=== PATIENT | male | born 1990 | race Caucasian/White ===

== ENCOUNTER 2019-08-23 17:30 | Outpatient (REF) | payer MEDICAID, SELFPAY ==
[2019-08-23 19:34] LABS: ALT 36 U/L (16-63); AST 18 U/L (15-37); Anion Gap 13.3 mmol/L (3-11); BUN 10 mg/dL (7-18); CO2 26.7 mmol/L (21.0-32.0); CREATININE 0.92 mg/dL (0.70-1.30); Calcium 9.4 mg/dL (8.5-10.1); Calculated LDL 156 mg/dL; Chloride 99 mmol/L (98-107); Cholesterol 231 mg/dL (<200); Glucose 85 mg/dL (74-106); HDL Cholesterol 47 mg/dL (40-60); Potassium 3.6 mmol/L (3.5-5.1); Sodium 139 mmol/L (136-145); Triglyceride 140 mg/dL (<150)
[2019-08-23 20:18] LABS: Hemoglobin A1C 5.9 % (4.5-6.2)
== END 2019-08-23 17:50 ==
LOC: NCHCO 17:30
PROVIDERS: PCP Nurse Practitioner Family; Visit Provider Nurse Practitioner Family
DX: I10 Essential (primary) hypertension (principal); R73.09 Other abnormal glucose; E78.5 Hyperlipidemia, unspecified
CPT/HCPCS: 80048; 80061; 83036; 84450; 84460

== ENCOUNTER 2020-03-08 09:52 | Outpatient (REF) | payer MEDICAID, SELFPAY ==
[2020-03-08 20:19] LABS: Abs Immature Grans 0.01 k/cumm (0.0-0.09); Absolute Basophil Count 0.03 k/cumm (0.0-0.2); Absolute Eosinophil Count 0.21 k/cumm (0.0-0.7); Absolute Lymphocyte Count 2.39 k/cumm (1.2-3.4); Absolute Monocyte Count 0.45 k/cumm (0.11-0.7); Absolute Neutrophil Count 5.01 k/cumm (1.2-6.7); Basophils % 0.4; Eosinophils % 2.6; HCT 41.1 % (40.0-50.0); HGB 13.9 g/dL (13.5-17.5); Immature Grans % 0.1 %; Lymphocytes % 29.5; Mean Corp. HGB Concentration 33.8 g/dL (32.0-36.0); Mean Corpuscular Hemoglobin 29.1 pg (27.0-33.0); Mean Platelet Volume 10.6 fL (8.0-11.0); Monocytes % 5.6; Neutrophils % 61.8; Platelet Count 286 x1000/uL (130-400); RBC 4.78 m/cumm (4.50-6.00); RBC Distribution Width 13.6 % (11.8-14.1)
[2020-03-08 20:32] LABS: Iron 59 ug/dL (65-175); Total Iron Binding Capacity 303 ug/dL (250-450); Transferrin Sat 19 % (20-55)
[2020-03-08 20:49] LABS: ALT 30 U/L (16-63); AST 18 U/L (15-37); Albumin 4.1 g/dL (3.4-5.0); Alkaline Phosphatase 75 U/L (46-116); Anion Gap 10.7 mmol/L (3-11); BUN 16 mg/dL (7-18); Bilirubin, Total 0.3 mg/dL (0.2-1.0); C-Reactive Protein 0.46 mg/dL (0.0-0.3); CO2 28.3 mmol/L (21.0-32.0); CREATININE 1.03 mg/dL (0.70-1.30); Calcium 9.2 mg/dL (8.5-10.1); Chloride 102 mmol/L (98-107); Glucose 74 mg/dL (74-106); Magnesium 1.9 mg/dL (1.8-2.4); Sodium 141 mmol/L (136-145); TSH (W/Ref FT4) 0.93 uIU/mL (0.36-3.74); Total Protein 7.5 g/dL (6.4-8.2); Uric Acid 6.4 mg/dL (3.5-7.2)
[2020-03-08 20:53] LABS: Vitamin D 25 Total 10.9 ng/ml (30-100)
[2020-03-08 20:56] LABS: ESR 16 mm/hr (0-15)
[2020-03-08 21:27] LABS: Ferritin 140 ng/mL (26-388); Vitamin B12 366 pg/mL (193-986)
[2020-03-09 17:06] LABS: Rheumatoid Factor <8.6 IU/mL (<12.0)
[2020-03-12 12:44] LABS: Lyme Ab w Rflx to Lyme Confirm Negative (Negative)
[2020-03-13 01:59] LABS: Anaplasma phagocytophilum Negative (Negative); B. miyamotoi PCR Negative (Negative); Babesia divergens/MO-1 Negative (Negative); Babesia duncani Negative (Negative); Babesia microti Negative (Negative); Ehrlichia chaffeensis Negative (Negative); Ehrlichia ewingii/canis Negative (Negative); Ehrlichia muris eauclairensis Negative (Negative)
== END 2020-03-08 10:12 ==
LOC: NCHCN 09:52
PROVIDERS: PCP Nurse Practitioner Family; Visit Provider Physician Assistant
DX: M51.36 Other intervertebral disc degeneration, lumbar region (principal); R53.1 Weakness; M25.50 Pain in unspecified joint; E66.01 Morbid (severe) obesity due to excess calories; I10 Essential (primary) hypertension; E78.5 Hyperlipidemia, unspecified
CPT/HCPCS: 80053; 82306; 85652; 87798; 82607; 82728; 83540; 83550; 83735; 84443; 84550; 85025; 86140; 86431; 86618

== ENCOUNTER 2021-02-07 20:40 | Outpatient (REF) | payer MEDICAID, SELFPAY ==
[2021-02-07 18:44] LABS: HCT 41.2 % (40.0-50.0); HGB 13.8 g/dL (13.5-17.5); MCH 29.4 pg (27.0-33.0); MCHC 33.5 % (32.0-36.0); MCV 87.7 fL (80-95); MPV 10.1 fL (8.0-11.0); Platelet Count 276 10^3/uL (130-400); RDW 12.9 % (11.8-14.1); RDW-SD 41.5 fL; WBC 10.63 10^3/uL (4.4-10.8)
[2021-02-07 18:53] LABS: ALT 26 U/L (16-63); AST 18 U/L (15-37); Albumin 4.3 g/dL (3.4-5.0); Alkaline Phosphatase 67 U/L (46-116); Anion Gap 9.8 mmol/L (3-11); BUN 15 mg/dL (7-18); Bilirubin, Total 0.4 mg/dL (0.2-1.0); CO2 29.2 mmol/L (21.0-32.0); Calcium 9.4 mg/dL (8.5-10.1); Chloride 103 mmol/L (98-107); Glucose 85 mg/dL (74-106); Sodium 142 mmol/L (136-145); Total Protein 7.4 g/dL (6.4-8.2)
[2021-02-07 19:08] LABS: Hemoglobin A1C 5.5 % (<5.7)
[2021-02-11 13:12] LABS: IgA 193 mg/dL (85-499); Interpretation (See Note); Tissue Transglutaminase IgA <1.2 U/mL (<4.0)
== END 2021-02-07 20:41 | disposition home or self-care (01) ==
LOC: NCHCN 20:40
PROVIDERS: PCP Nurse Practitioner Family; Visit Provider Internal Medicine
DX: K57.32 Diverticulitis of large intestine without perforation or abscess without bleeding (principal); K62.5 Hemorrhage of anus and rectum; Z13.1 Encounter for screening for diabetes mellitus
CPT/HCPCS: 80053; 82784; 83516; 85027; 83036

== ENCOUNTER 2021-03-06 13:30 | Outpatient (REF) | payer MEDICAID, SELFPAY ==
[2021-03-09 15:52] LABS: 2-Hydroxy Ethyl Flurazepam Not Detected ng/mL (Cutoff: 10); 3,4-methylenedioxyamphetamine Not Detected ng/mL (Cutoff: 100); 3,4-methylenedioxyethylampheta Not Detected ng/mL (Cutoff: 100); 3,4-methylenedioxymethamphetam Not Detected ng/mL (Cutoff: 100); 6-monoacetylmorphine Not Detected ng/mL (Cutoff: 25); Alpha-Hydroxy Midazolam Not Detected ng/mL (Cutoff: 10); Alpha-Hydroxy Triazolam Not Detected ng/mL (Cutoff: 10); Alpha-Hydroxyalprazolam Not Detected ng/mL (Cutoff: 10); Alpha-OH-alprazolam Glucuronid Not Detected ng/mL (Cutoff: 50); Alprazolam Not Detected ng/mL (Cutoff: 10); Amphetamine Not Detected ng/mL (Cutoff: 100); Barbiturates Negative ng/mL (Cutoff: 200); Buprenorphine Not Detected ng/mL (Cutoff: 5); Chlordiazepoxide Not Detected ng/mL (Cutoff: 10); Clobazam Not Detected ng/mL (Cutoff: 10); Clonazepam Not Detected ng/mL (Cutoff: 10); Cocaine Negative ng/mL (Cutoff: 150); Codeine Not Detected ng/mL (Cutoff: 25); Comment Normal; Creatinine, U 119.9 mg/dL; Diazepam Not Detected ng/mL (Cutoff: 10); Dihydrocodeine Not Detected ng/mL (Cutoff: 25); EDDP Not Detected ng/mL (Cutoff: 25); Ephedrine Not Detected ng/mL (Cutoff: 100); Fentanyl Not Detected ng/mL (Cutoff: 2); Flurazepam Not Detected ng/mL (Cutoff: 10); Hydrocodone Not Detected ng/mL (Cutoff: 25); Hydromorphone Not Detected ng/mL (Cutoff: 25); Hydromorphone-3-beta-glucuroni Not Detected ng/mL (Cutoff: 100); Lorazepam Not Detected ng/mL (Cutoff: 10); Lorazepam Glucuronide Not Detected ng/mL (Cutoff: 50); Meperidine Not Detected ng/mL (Cutoff: 25); Methadone Not Detected ng/mL (Cutoff: 25); Methamphetamine Not Detected ng/mL (Cutoff:100); Methylphenidate Not Detected ng/mL (Cutoff: 20); Midazolam Not Detected ng/mL (Cutoff: 10); Morphine Not Detected ng/mL (Cutoff: 25); N-Desmethylclobazam Not Detected ng/mL (Cutoff: 200); N-desmethyltapentadol Not Detected ng/mL (Cutoff: 50); Naloxone Not Detected ng/mL (Cutoff: 25); Norbuprenorphine Not Detected ng/mL (Cutoff: 5); Norfentanyl Not Detected ng/mL (Cutoff: 2); Norhydrocodone Not Detected ng/mL (Cutoff: 25); Normeperidine Not Detected ng/mL (Cutoff: 25); Noroxycodone Not Detected ng/mL (Cutoff: 25); Noroxymorphone Not Detected ng/mL (Cutoff: 25); O-desmethyltramadol Not Detected ng/mL (Cutoff: 25); Oxazepam Glucuronide Not Detected ng/mL (Cutoff: 50); Phencyclidine (PCP) Not Detected ng/mL (Cutoff: 20); Phentermine Not Detected ng/mL (Cutoff: 100); Prazepam Not Detected ng/mL (Cutoff: 10); Propoxyphene Not Detected ng/mL (Cutoff: 25); Pseudoephedrine Not Detected ng/mL (Cutoff: 100); Ritalinic Acid Not Detected ng/mL (Cutoff: 100); Specific Gravity 1.018; Tapentadol Not Detected ng/mL (Cutoff: 25); Temazepam Not Detected ng/mL (Cutoff: 10); Temazepam Glucuronide Not Detected ng/mL (Cutoff: 50); Tetrahydrocannabinol Presumptive Positive ng/mL (Cutoff: 50); Tramadol Not Detected ng/mL (Cutoff: 25); Triazolam Not Detected ng/mL (Cutoff: 10); Zolpidem Phenyl-4-Carboxy acid Not Detected ng/mL (Cutoff: 10); pH 5.6
[2021-04-04 11:43] LABS: Carboxy-THC Interpretation Positive.; Delta-9 CarboxyThc by LC-MS/MS >500.0 ng/mL (Cutoff:<3)
== END 2021-03-06 13:31 | disposition home or self-care (01) ==
LOC: LBN 13:30
PROVIDERS: Nurse Practitioner Family; PCP Nurse Practitioner Family; Visit Provider Nurse Practitioner Family
DX: M47.816 Spondylosis without myelopathy or radiculopathy, lumbar region (principal); Z79.899 Other long term (current) drug therapy
CPT/HCPCS: 80307; 80347; 80349; 80364

== ENCOUNTER 2021-04-09 12:28 | Outpatient (CLI) | payer MEDICAID, SELFPAY ==
[2021-04-09 12:39] VITALS: BP 104/67; PULSE 71; RESP 20; TEMP 37.2; O2SAT 99
--- NOTE | 2021-04-09 13:12 | DI.RAD_ITS ---
Exam(s) XR PAIN CLINIC LUMBAR SP 2V EXAM: XR PAIN CLINIC LUMBAR SP 2V CLINICAL HISTORY: Dx: Lumbar Spondylosis. TECHNIQUE: 2D and realtime digital imaging was performed. COMPARISON: None FINDINGS: Fluoroscopy was provided during pain management therapy. Radiologist not present. See report for de tails. Images reveal placement of needles bilaterally at L inside lower 2 levels of the lumbar spine. There appears to be transitional lumbosacral vertebra. IMPRESSION: Total fluoroscopy time 31.1 seconds. Cumulative dose 12.8mGy RADIATION DOSE DELIVERED: tremaine Schmid= mGy
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
[2021-04-09] MEDS: Omnipaque 240 MG/ML 50 ML BTL IJ (13:32)
[2021-04-09 13:33] VITALS: BP 114/80; PULSE 70; RESP 13; O2SAT 100
[2021-04-09] MEDS: Bupivacaine 0.5% Pres-Free 10 ML VIAL IJ (13:33)
== END 2021-04-09 12:29 | disposition home or self-care (01) ==
LOC: PC 12:31
PROVIDERS: PCP Nurse Practitioner Family; Visit Provider Internal Medicine
DX: M47.816 Spondylosis without myelopathy or radiculopathy, lumbar region (principal)
CPT/HCPCS: 64493; 64494; 72100; Q9967

== ENCOUNTER 2021-04-23 09:36 | Outpatient (CLI) | payer MEDICAID, SELFPAY ==
[2021-04-23 09:42] VITALS: BP 138/70; PULSE 79; RESP 18; TEMP 37.2; O2SAT 100
--- NOTE | 2021-04-23 10:11 | DI.RAD_ITS ---
Exam(s) XR PAIN CLINIC LUMBAR SP 2V EXAM: XR PAIN CLINIC LUMBAR SP 2V CLINICAL HISTORY: Dx: Lumbar Spondylosis TECHNIQUE: 2D and realtime digital imaging was performed. CONTRAST MATERIAL: Refer to procedure report. COMPARISON: No exams were available for comparison FINDINGS: Fluoroscopy was provided for Dr. Lopez during the performance of a lumbar medial branch block. Please refer to the procedure report for complete details. Ka,r=21.18 mGy IMPRESSION:
[2021-04-23 10:14] VITALS: BP 135/88; PULSE 80; RESP 16; O2SAT 97
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
[2021-04-23] MEDS: Lidocaine 2% Pres-Free 5 ML VIAL IJ (10:21)
[2021-04-23] MEDS: Omnipaque 240 MG/ML 50 ML BTL IJ (10:21)
== END 2021-04-23 09:37 | disposition home or self-care (01) ==
LOC: PC 09:36
PROVIDERS: PCP Nurse Practitioner Family; Visit Provider Internal Medicine
DX: M47.816 Spondylosis without myelopathy or radiculopathy, lumbar region (principal)
CPT/HCPCS: 64493; 64494; 72100; Q9967

== ENCOUNTER 2021-06-18 12:05 | Outpatient (CLI) | payer MEDICAID, SELFPAY ==
[2021-06-18 12:20] VITALS: BP 126/76; PULSE 71; RESP 18; TEMP 37; O2SAT 98
[2021-06-18] MEDS: Lactated Ringers 1,000 ML 80 ML IV (12:55)
[2021-06-18] MEDS: fentaNYL 100 MCG/2 ML VIAL IVP ×2 (13:10→13:28)
[2021-06-18] MEDS: Midazolam 2 MG/2 ML VIAL IVP ×2 (13:11→13:42)
[2021-06-18 13:52] VITALS: BP 149/63; PULSE 70; RESP 15; O2SAT 100
[2021-06-18] MEDS: Lidocaine 1% Pres-Free 30 ML VIAL IJ ×2 (13:53→14:09)
--- NOTE | 2021-06-18 13:58 | DI.RAD_ITS ---
Exam(s) XR PAIN CLINIC LUMBAR SP 2V EXAM: XR PAIN CLINIC LUMBAR SP 2V CLINICAL HISTORY: Dx: Lumbar Spondylosis TECHNIQUE: 2D and realtime digital imaging was performed. CONTRAST MATERIAL: Refer to procedure report. COMPARISON: No exams were available for comparison FINDINGS: Fluoroscopy was provided for Dr. Lopez during the performance of a lumbar radiofrequency ablation. Ple ase refer to the procedure report for complete details. Ka,r=35.76 mGy IMPRESSION:
--- NOTE | 2021-06-18 14:03 | PDOC.PAIN ---
Pain Clinic Procedure Note Procedure Note Procedure Note: Bilateral Lumbar Radiofrequency with Coolief Machine PROCEDURE NOTE Date of Service: June 18, 2021 Patient: Drew Hamlin Provider: Kishore Lopez MD Pre Operative Diagnosis: Lumbosacral Spondylosis without Myelopathy Post Operative Diagnosis: Same Pre procedure pain: VAS=3/10 Post procedure pain: VAS= 2/10 PROCEDURE: Radiofrequency Ablation of medial branches - Bilateral L3, L4, L5 Drew Hamlin was brought into the fluoroscopy suite and positioned into the prone position on the fluoroscopy table and allowed to adjust to a position of comfort. A grounding pad was placed on the [right/left] thigh. The lumbar region was widely prepped with a chloraprep solution, allowed to air dry and draped in standard sterile surgical fashion. Local anesthesia was provided by 20 mL of 1% Lidocaine delivered with a 25g needle. A 17g 100mm radiofrequency introducer needle was placed to the planned anatomic targets guided with intermittent fluoroscopy with a perpendicular approach to terminally place at the junction of the superior articular process and the transverse process of the bilateral L3, L4, L5-DR patient has partial sacralization where the transverse process of L5 is continuous with the sacral ala, the needle touched the base of the sacral ala to the S1 foramen bilaterally. The stylets were removed and radiofrequency probes with a 4mm active tip were then inserted. Needle tip position of the probes was verified in the AP, oblique, and lateral views. At each site, the medial branch nerve was stimulated at 2 Hz to a maximum 1-2 volts determined to finalize safe needle and electrode placement. The patient was awake and responsive during this portion of the procedure. Each target was anesthetized with 1mL of 2% lidocaine for anesthesia for lesioning and then each target was lesioned at 80 degrees Celsius for 2 minutes and 30 seconds. Tissue impedences were noted to be between 250 and 500 Ohms. Post lesioning, 0.5cc of solution containing 0.5% bupivocaine and 40mg/ml of depomedrol at each site to reduce risk of post-RF neuritis. Electrodes and needles were then removed and bandages placed over the needle placement sites, the patient then returned to the supine position on a stretcher and transported to the recovery room without hemodynamic, neurologic, or allergic reactions. Fluoroscopic images were printed for hard copy recording and digitally archived. POST PROCEDURE EVALUATION: IMPRESSION: 1. Summary of procedure. Medication given include 1.5mg of IV versed and 50mcg of Fentanyl. 2. Patient was diaphoretic in the pre-procedure area when he was getting his IV placed, vital signs were monitored and remained stable, patient was placed in reverse [place] position and his symptoms self resolved, no drop in HR observed. Did not need glycopyrrolate, would recommend future IV placement with patient in supine position 3. Estimated Blood Loss: <5 mls 4. Fluoroscopy time: Documented in the EMR. Follow up plans and appointments were discussed with the Drew . Post procedure instruction was given as documented in nursing documentation and having met discharge criteria, Drew was discharged from the Pain Management Center. COMMENTS: No apparent complications. Post-procedure pain: VAS= 1-2/10. F/U with our office as needed. I personally performed this entire procedure. Kishore Lopez MD Attending Physician Pain Management
[2021-06-18] MEDS: Bupivacaine 0.5% Pres-Free 10 ML VIAL IJ (14:04)
[2021-06-18] MEDS: Lidocaine 2% Pres-Free 5 ML VIAL IJ (14:10)
[2021-06-18] MEDS: methylPREDNISolone ACETATE 40 MG/ML VIAL IJ (14:10)
== END 2021-06-18 12:06 | disposition home or self-care (01) ==
PROVIDERS: PCP Nurse Practitioner Family; Visit Provider Internal Medicine
DX: M47.817 Spondylosis without myelopathy or radiculopathy, lumbosacral region (principal)
CPT/HCPCS: 64635; 64636; 72100; J1030; J2250; J3010

== ENCOUNTER 2022-07-21 12:07 | Outpatient (REF) | payer MEDICAID, SELFPAY ==
[2022-07-21 20:21] LABS: ALT 26 U/L (16-63); AST 21 U/L (15-37); Albumin 4.1 g/dL (3.4-5.0); Alkaline Phosphatase 71 U/L (46-116); Anion Gap 7.7 mmol/L (3-11); BUN 14 mg/dL (7-18); Bilirubin, Total 0.3 mg/dL (0.2-1.0); CO2 27.3 mmol/L (21.0-32.0); CREATININE 1.1 mg/dL (0.70-1.30); Calcium 9.4 mg/dL (8.5-10.1); Chloride 102 mmol/L (98-107); Glucose 119 mg/dL (74-106); Potassium 3.6 mmol/L (3.5-5.1); Sodium 137 mmol/L (136-145); Total Protein 8.1 g/dL (6.4-8.2)
== END 2022-07-21 12:08 | disposition home or self-care (01) ==
LOC: NCHCN 12:07
PROVIDERS: PCP Nurse Practitioner Family; Visit Provider Nurse Practitioner Family
DX: I10 Essential (primary) hypertension (principal); E78.5 Hyperlipidemia, unspecified
CPT/HCPCS: 80053

== ENCOUNTER 2023-01-26 18:02 | Outpatient (REF) | payer MEDICAID, SELFPAY ==
[2023-01-26 19:08] LABS: HCT 42.7 % (40.0-50.0); HGB 14.5 g/dL (13.5-17.5); MCH 29.1 pg (27.0-33.0); MCV 86 fL (80-95); MPV 10.3 fL (8.0-11.0); Platelet Count 317 10^3/uL (130-400); RBC 4.98 10^6/uL (4.36-5.78); RDW 12.7 % (11.8-14.1); RDW-SD 39.7 fL; WBC 9.74 10^3/uL (4.4-10.8)
[2023-01-26 20:42] LABS: Hemoglobin A1C 5.4 % (<5.7)
[2023-01-26 21:34] LABS: Calculated LDL 156 mg/dL (<100); Cholesterol 240 mg/dL (<200); HDL Cholesterol 55 mg/dL (40-60); Triglyceride 149 mg/dL (<150)
== END 2023-01-26 18:03 | disposition home or self-care (01) ==
LOC: NCHCN 18:02
PROVIDERS: PCP Nurse Practitioner Family; Visit Provider Nurse Practitioner Family
DX: R73.03 Prediabetes (principal); K57.92 Diverticulitis of intestine, part unspecified, without perforation or abscess without bleeding; E78.5 Hyperlipidemia, unspecified
CPT/HCPCS: 80061; 85027; 83036

== ENCOUNTER 2024-12-27 19:02 | Outpatient (REF) | payer BC, SELFPAY ==
[2024-12-27 20:22] LABS: ALT 37 U/L (16-63); AST 27 U/L (15-37); Albumin 4.4 g/dL (3.4-5.0); Alkaline Phosphatase 76 U/L (46-116); Anion Gap 10.5 mmol/L (3-11); BUN 12 mg/dL (7-18); Bilirubin, Total 0.5 mg/dL (0.2-1.0); CO2 26.5 mmol/L (21.0-32.0); CREATININE 1.1 mg/dL (0.70-1.30); Calcium 9.8 mg/dL (8.5-10.1); Calculated LDL 196 mg/dL (<100); Chloride 104 mmol/L (98-107); Cholesterol 292 mg/dL (<200); Estimated GFR 89.22 (mL/min/1.73m2); Glucose 91 mg/dL (74-106); HDL Cholesterol 68 mg/dL (>or=40); Potassium 4.1 mmol/L (3.5-5.1); Sodium 141 mmol/L (136-145); TSH (W/Ref FT4) 1.13 uIU/mL (0.36-3.74); Total Protein 8.2 g/dL (6.4-8.2); Triglyceride 141 mg/dL (<150)
== END 2024-12-27 19:03 | disposition home or self-care (01) ==
LOC: NCHCN 19:02
PROVIDERS: PCP Nurse Practitioner Family; Visit Provider Nurse Practitioner Family
DX: E66.01 Morbid (severe) obesity due to excess calories (principal); E78.5 Hyperlipidemia, unspecified
CPT/HCPCS: 80053; 80061; 84443